=== PATIENT | female | born 1940 | race Hispanic/Latino ===

== ENCOUNTER 2022-10-15 13:18 | Observation (INO) | payer MEDICARE, OTHER ==
[~2022-10-15] VITALS: Ht 157.5 cm; Wt 62.7 kg
[2022-10-15 13:55] LABS: BASOPHILS % (AUTO) 0.2 % (0.0-5.0); EOSINOPHILS % (AUTO) 0.6 % (0.0-8.0); HEMATOCRIT 31.9 % (36-48); LYMPHOCYTES % (AUTO) 5.2 % (21.0-51.0); MEAN CORPUSCULAR HEMOGLOBIN 28.6 pg (27.0-33.0); MEAN CORPUSCULAR HGB CONC 32.3 g/dL (32.0-36.0); MEAN CORPUSCULAR VOLUME 88.6 fL (79-99); MONOCYTES % (AUTO) 3.5 % (3.0-13.0); NEUTROPHILS % (AUTO) 90.2 % (40.0-77.0); PLATELET COUNT (AUTO) 227 K/uL (130-400); RED CELL DISTRIBUTION WIDTH 17.2 % (11.0-15.5); WHITE BLOOD COUNT (AUTO) 12.6 K/uL (4.8-10.8)
[2022-10-15] MEDS ORDERED: 0.9%NACL 1000ML 1,000 ML IV SCH (14:00)
[2022-10-15 14:06] LABS: CREATININE 1.3 mg/dL (0.5-1.5); POTASSIUM 4.4 mmol/L (3.5-5.1)
[2022-10-15 14:11] LABS: TOTAL PROTEIN, SERUM 6.2 g/dL (6.0-8.3)
[2022-10-15 16:21] LABS: APPEARANCE,URINE CLOUDY (CLEAR); BILIRUBIN,URINE NEGATIVE (NEGATIVE); COLOR,URINE YELLOW (YELLOW); GLUCOSE, URINE (UA) NEGATIVE (NEGATIVE); KETONES,URINE NEGATIVE (NEGATIVE); LEUKOCYTE ESTERASE ,URINE 500 Leu/uL (NEGATIVE); NITRATE,URINE 2+ (NEGATIVE); OCCULT BLOOD,URINE SMALL (NEGATIVE); PH,URINE 5.5 (5.0-8.0); PROTEIN,URINE 10 mg/dL (NEGATIVE); UROBILINOGEN,URINE 0.2 mg/dL (0.2-1.0)
[2022-10-15] MEDS ORDERED: CEFTRIAXONE 1G VIAL IVP ONE (16:30)
[2022-10-15] MEDS ORDERED: SULF1TAB42 PO (16:31)
[2022-10-15 16:34] LABS: BACTERIA,URINE MOD /HPF (None Seen); MUCUS,URINE RARE LPF (None Seen); SQUAMOUS EPITHELIAL CELL,UR FEW /HPF (0-2); TRANSITIONAL EPI CELLS,URINE RARE /HPF (None Seen); WBC,URINE TNTC /HPF (0-1)
[2022-10-15] MEDS: CEFTRIAXONE 1G VIAL IVP SCH (18:29)
[2022-10-15] MEDS ORDERED: ONDANSETRON 4MG INJ IVP PRN (18:30)
[2022-10-15] MEDS ORDERED: HYDRALAZINE 20MG/ML VIAL IV PRN (18:30)
[2022-10-15] MEDS ORDERED: ACETAMINOPHEN 650 MG SUPPOSITORY RC PRN (18:30)
[2022-10-15] MEDS ORDERED: ACETAMINOPHEN 325 MG TAB PO PRN (18:30)
[2022-10-15] MEDS: LACTATED RINGERS 1000ML 1,000 ML IV SCH (19:49)
[2022-10-15] MEDS: FAMOTIDINE 20MG TAB PO SCH (20:53)
[2022-10-15] MEDS: INSULIN HUMULIN R 100 UNIT/ML 3ML SQ SCH (21:00)
[2022-10-15 22:49] VITALS: BP 96/74
[2022-10-15] MEDS ORDERED: GABA300S PO (23:14)
[2022-10-15] MEDS ORDERED: CILO50TA2 PO (23:14)
[2022-10-15] MEDS ORDERED: ESCI20TA38 PO (23:14)
[2022-10-15] MEDS ORDERED: PRED5TAB PO (23:14)
[2022-10-15] MEDS ORDERED: vit d PO (23:14)
[2022-10-15] MEDS ORDERED: NAPR-1023 PO (23:14)
[2022-10-15] MEDS ORDERED: UPAD15TA PO (23:14)
[2022-10-15] MEDS ORDERED: FLUT1BLS3 IH (23:14)
[2022-10-15] MEDS ORDERED: TIZA-194 PO (23:14)
[2022-10-15] MEDS ORDERED: CLOP75TA32 PO (23:14)
[2022-10-15 23:30] VITALS: BP 148/61
[2022-10-15 23:31] VITALS: BP 148/55
[2022-10-16] MEDS: LACTATED RINGERS 1000ML 1,000 ML IV SCH (03:14)
[2022-10-16 03:45] LABS: HEMATOCRIT 29.3 % (36-48); MEAN CORPUSCULAR HEMOGLOBIN 28.4 pg (27.0-33.0); MEAN CORPUSCULAR HGB CONC 31.7 g/dL (32.0-36.0); MEAN CORPUSCULAR VOLUME 89.6 fL (79-99); RED BLOOD CELL COUNT(AUTO) 3.27 MIL/uL (4.00-5.50); RED CELL DISTRIBUTION WIDTH 17.1 % (11.0-15.5); WHITE BLOOD COUNT (AUTO) 4.5 K/uL (4.8-10.8)
[2022-10-16 03:56] LABS: CREATININE 0.9 mg/dL (0.5-1.5); MAGNESIUM 1.8 mg/dL (1.80-2.40); PHOSPHORUS 3.2 mg/dL (2.5-4.9); POTASSIUM 4.3 mmol/L (3.5-5.1)
[2022-10-16 04:10] VITALS: BP 121/52
[2022-10-16] MEDS: INSULIN HUMULIN R 100 UNIT/ML 3ML SQ SCH ×2 (05:25→10:54)
[2022-10-16 08:30] VITALS: BP 111/51
[2022-10-16] MEDS: CEFTRIAXONE 1G VIAL IVP SCH (10:25)
[2022-10-16] MEDS: ENOXAPARIN SODIUM 30 MG/0.3 ML SQ SCH (10:25)
[2022-10-16] MEDS: [UNRECOGNIZED DRUG - OTHER] IH SCH (11:25)
[2022-10-16] MEDS: UMECLIDIN IH SCH (11:25)
[2022-10-16] MEDS: FLUTICASONE IH SCH (11:25)
[2022-10-16] MEDS: VILANTER IH SCH (11:25)
[2022-10-16 11:30] VITALS: BP 122/53
[2022-10-16] MEDS: GABAPENTIN 300 MG CAPSULE PO SCH ×2 (15:24→21:56)
[2022-10-16] MEDS: CITALOPRAM 20 MG TABLET PO SCH (15:25)
[2022-10-16] MEDS: CILOSTAZOL 100 MG TAB PO SCH ×2 (15:25→21:56)
[2022-10-16 16:48] VITALS: BP 143/66
[2022-10-16 20:00] VITALS: BP 115/43
[2022-10-16] MEDS: FAMOTIDINE 20MG TAB PO SCH (21:56)
[2022-10-16 23:04] VITALS: BP 143/61
[2022-10-17 03:51] VITALS: BP 105/49
[2022-10-17 08:00] VITALS: BP 113/55
[2022-10-17] MEDS: ENOXAPARIN SODIUM 30 MG/0.3 ML SQ SCH (08:14)
[2022-10-17] MEDS: CEFTRIAXONE 1G VIAL IVP SCH (08:14)
[2022-10-17] MEDS: CITALOPRAM 20 MG TABLET PO SCH (08:15)
[2022-10-17] MEDS: CILOSTAZOL 100 MG TAB PO SCH (08:15)
[2022-10-17] MEDS: GABAPENTIN 300 MG CAPSULE PO SCH (08:15)
[2022-10-17] MEDS: UMECLIDIN IH SCH (09:00)
[2022-10-17] MEDS ORDERED: CLOPIDOGREL 75MG TAB PO SCH (09:00)
[2022-10-17] MEDS: FLUTICASONE IH SCH (09:00)
[2022-10-17] MEDS: [UNRECOGNIZED DRUG - OTHER] IH SCH (09:00)
[2022-10-17] MEDS ORDERED: PREDNISONE 5 MG TABLET PO SCH (09:00)
[2022-10-17] MEDS: VILANTER IH SCH (09:00)
[2022-10-17] MEDS ORDERED: 0.9%NACL 1000ML 1,000 ML IV SCH (11:30)
[2022-10-17 12:00] VITALS: BP 130/53
[2022-10-17] MEDS ORDERED: LEVO-70 PO (13:07)
== END 2022-10-17 15:24 | disposition home or self-care (01) ==
LOC: EDH 13:18 → EDHIP 17:51 → 2AH 22:39 → 4DH 10-16 23:50
PROVIDERS: ADMIT Internal Medicine Critical Care Medicine; ATTEND Internal Medicine Critical Care Medicine
DX: R55 Syncope and collapse (principal); Z20.822 Contact with and (suspected) exposure to COVID-19; N30.00 Acute cystitis without hematuria; M19.90 Unspecified osteoarthritis, unspecified site; I95.9 Hypotension, unspecified; D72.829 Elevated white blood cell count, unspecified; D64.9 Anemia, unspecified; R42 Dizziness and giddiness; F32.9 Major depressive disorder, single episode, unspecified; I73.9 Peripheral vascular disease, unspecified; M06.9 Rheumatoid arthritis, unspecified; Z79.899 Other long term (current) drug therapy
CPT/HCPCS: 96374; 96361 ×4; 99285; 84484; 80053; 85025; 87040 ×2; 87077; 87088; 87186; 82948 ×3; 83605 ×2; 81001; 36415 ×2; 71045; 70450; 93005; 84145; 96376 ×2; 96372 ×2; 83735; 84100; 80048; 85027; 93306; 93880; 97161; 97116; G0378 ×43; J7120 ×2; J0696 ×4; J1650 ×2; J7512